=== PATIENT | male | born 1985 | race Caucasian/White ===

== ENCOUNTER 2018-01-08 02:55 | Emergency (ER) | END 2018-01-08 06:35 | disposition home or self-care (01) ==

== ENCOUNTER 2018-03-06 02:12 | Emergency (ER) | END 2018-03-06 04:59 | disposition home or self-care (01) ==

== ENCOUNTER 2018-04-13 07:31 | Emergency (ER) | END 2018-04-13 09:38 | disposition home or self-care (01) ==

== ENCOUNTER 2018-06-10 07:21 | Emergency (ER) | END 2018-06-10 09:42 | disposition home or self-care (01) ==